=== PATIENT | male | born 1990 | race Asian ===

== ENCOUNTER 2017-01-14 00:21 | Emergency (ER) | payer OTHER ==
[~2017-01-14] VITALS: Ht 172.7 cm; Wt 75.7 kg
--- NOTE | 2017-01-14 00:37 | NUR ---
PT AMBULATORY TO ER BED 3 BB SISTER; PT STATES "HAD A FEW DRINKS TONIGHT, SLIPPED ON WATER, FELL AND HIT HEAD" MULTIPLE ABRASIONS NOTED ON FACE. PT AOX4 RR EVEN AND UNLABORED. NO SOB NOTED. NAD NOTED. NO NVD AT THIS TIME. PT PLACED ON MONITOR WAITING FOR MD BOWER.
--- NOTE | 2017-01-14 00:40 | NUR ---
DR. ABDUL AT BEDSIDE FOR EVAL.
[2017-01-14] MEDS ORDERED: TDAP [DIPH/PERTUSSIS/TET] 0.5 ML VIAL IM ONE ×2 (00:46→01:00)
--- NOTE | 2017-01-14 00:53 | NUR ---
PT TO CT VIA W/C
--- NOTE | 2017-01-14 01:01 | NUR ---
PT RETURNED FROM CT.
--- NOTE | 2017-01-14 01:26 | NUR ---
Patient discharged to home in stable condition. Written and verbal after care instructions given. Patient verbalizes understanding of instruction. ambulatory with a steady gait. pt accompanied by sister.
[2017-01-14 01:27] VITALS: BP 124/73
== END 2017-01-14 01:27 | disposition home or self-care (01) ==
LOC: ER 00:21
DX: S00.81XA Abrasion of other part of head, initial encounter (principal); F41.9 Anxiety disorder, unspecified; W01.198A Fall on same level from slipping, tripping and stumbling with subsequent striking against other object, initial encounter; Y93.01 Activity, walking, marching and hiking; Y92.89 Other specified places as the place of occurrence of the external cause; Y99.8 Other external cause status
CPT/HCPCS: 70450; 82962; 90471; 90715; 99284; A4606; Z7610